=== PATIENT | female | born 1960 | race Caucasian/White ===

== ENCOUNTER 2024-10-17 18:25 | Inpatient (IN) | payer SELFPAY ==
[~2024-10-17 18:25] MED LIST: Iopamidol-370 76% 500 ML MDV (1 ML CHARGE) ONE
[2024-10-17] MEDS ORDERED: Morphine 4 MG/ML VIAL ONE ×2 (19:00→22:10)
[2024-10-17] MEDS ORDERED: LevoFLOXacin 750 mg/D5W 150 ml Premix Bag ONE (19:01)
[2024-10-17] MEDS ORDERED: Ondansetron PF 4 MG/2 ML Vial ONE (19:01)
[2024-10-17] MEDS ORDERED: Pantoprazole 40 MG VIAL ONE (19:35)
[2024-10-17 19:51] LABS: INR-International Normal Ratio 1.1; Prothrombin Time 13.9 sec (12.0-14.7)
[2024-10-17 19:54] LABS: ALT (SGPT) 9 U/L (8-55); AST (SGOT) 14 U/L (5-34); Albumin 3.8 g/dL (3.4-4.8); Alkaline Phosphatase 193 U/L (40-110); Anion Gap 9 mmol/L (10-20); BUN (Urea Nitrogen) 6 mg/dL (9.8-20.1); Bilirubin, Total 0.5 mg/dL (0.2-1.2); Calc. Creatinine Clearance 0 mL/min (70-130); Calcium 8.6 mg/dL (7.8-10.44); Carbon Dioxide 26 mmol/L (23-31); Chloride 109 mmol/L (98-107); Estimated GFR 90; Globulin 2.3 g/dL (2.4-3.5); Glucose 92 mg/dL (80-115); Potassium 3.3 mmol/L (3.5-5.1); Protein, Total 6.1 g/dL (5.8-8.1); Sodium 141 mmol/L (136-145)
[2024-10-17 20:03] LABS: Troponin I Less than 0.010 ng/mL (< 0.028)
[2024-10-17 20:05] LABS: #Basophils 0.04 10x3/uL (0.0-0.2); %Basophils 0.9 % (0.0-1.0); %Eosinophils 1.8 % (0.0-10.0); %Lymphocytes 43.9 % (21.0-51.0); %Monocytes 5.2 % (0.0-10.0); Hematocrit 38.5 % (36.0-47.0); Hemoglobin 13.2 g/dL (12.0-16.0); Mean Corpuscular HGB CONC 34.3 g/dL (32.0-36.0); Mean Corpuscular Hemoglobin 36.6 pg (27.0-31.0); Mean Corpuscular Volume 106.6 fL (78.0-98.0); Mean Platelet Volume 11.8 fL (7.4-10.4); Platelet Count 125 10x3/uL (130-400); RBC Distribution Width 14.4 % (11.5-14.5); Red Blood Cell (RBC) Count 3.61 mill/uL (4.20-5.40)
[2024-10-18 00:27] VITALS: BMI 19.8
[2024-10-18] MEDS: Morphine 2 MG/ML VIAL SLOW IVP SCH (01:15)
[2024-10-18] MEDS ORDERED: Acetaminophen 650 MG Suppository PR PRN (02:05)
[2024-10-18] MEDS ORDERED: Calcium Carbonate 500 MG ChewTAB PO PRN (02:05)
[2024-10-18] MEDS ORDERED: Ondansetron PF 4 MG/2 ML Vial IVP PRN (02:05)
[2024-10-18] MEDS ORDERED: Nicotine 14 MG PATCH TD PRN (02:12)
[2024-10-18] MEDS ORDERED: Electrolyte Replacement Protocol FS SCH (02:13)
[2024-10-18] MEDS: Ondansetron ODT 4 MG TAB PO PRN (04:41)
[2024-10-18] MEDS: Acetaminophen 325 MG TAB PO PRN (04:41)
[2024-10-18 05:10] LABS: #Basophils 0.05 10x3/uL (0.0-0.2); %Basophils 0.9 % (0.0-1.0); %Eosinophils 1.7 % (0.0-10.0); %Neutrophils 38.2 % (42.0-75.0); Hematocrit 35.1 % (36.0-47.0); Hemoglobin 11.6 g/dL (12.0-16.0); Mean Corpuscular Hemoglobin 36.5 pg (27.0-31.0); Mean Corpuscular Volume 110.4 fL (78.0-98.0); Mean Platelet Volume 11.5 fL (7.4-10.4); Platelet Count 114 10x3/uL (130-400); RBC Distribution Width 14.6 % (11.5-14.5); Red Blood Cell (RBC) Count 3.18 mill/uL (4.20-5.40)
[2024-10-18 05:23] LABS: ALT (SGPT) 6 U/L (8-55); AST (SGOT) 13 U/L (5-34); Albumin 3.3 g/dL (3.4-4.8); Alkaline Phosphatase 157 U/L (40-110); Anion Gap 11 mmol/L (10-20); BUN (Urea Nitrogen) 4 mg/dL (9.8-20.1); Bilirubin, Total 0.4 mg/dL (0.2-1.2); Calc. Creatinine Clearance 66 mL/min (70-130); Calcium 8.2 mg/dL (7.8-10.44); Carbon Dioxide 21 mmol/L (23-31); Chloride 110 mmol/L (98-107); Estimated GFR 97; Globulin 1.9 g/dL (2.4-3.5); Glucose 80 mg/dL (80-115); Potassium 3.4 mmol/L (3.5-5.1); Protein, Total 5.2 g/dL (5.8-8.1); Sodium 139 mmol/L (136-145)
[2024-10-18 05:36] LABS: Anisocytosis SLIGHT = 6-15 cells HPF (0-5); Band 3 % (5-11); Eosinophils 4 % (0-10); Hypochromia SLIGHT = 6-15 cells HPF (0-5); Lymphocytes 51 % (21-51); Macrocytosis SLIGHT = 6-15 cells HPF (0-5); Neutrophil 43 % (42-75); Platelet Adequacy Comment Platelets Decreased
[2024-10-18] MEDS: Famotidine/PF 20 mg/2ml Vial SLOW IVP SCH (08:28)
[2024-10-18] MEDS: Potassium Chloride 20 MEQ in Premix 1 BAG IVPB SCH (08:28)
[2024-10-18] MEDS: Famotidine 20 MG TAB PO SCH (08:28)
[2024-10-18] MEDS: traMADol HCl 50 MG TAB PO PRN (10:37)
[2024-10-18] MEDS: GoLYTELY 4,000 ml Bottle PO SCH (13:07)
[2024-10-18] MEDS ORDERED: Electrolyte Replacement Protocol FS PRN (13:45)
[2024-10-18] MEDS: Potassium Bicarbonate/Cit Ac 20 MEQ TAB PO SCH (13:59)
[2024-10-18] MEDS: Lactated Ringer's 1,000 ML IV SCH (17:42)
[2024-10-18] MEDS: Acetaminophen 500 MG TAB PO SCH (21:31)
[2024-10-19 05:52] LABS: #Basophils 0.05 10x3/uL (0.0-0.2); %Basophils 1.1 % (0.0-1.0); %Eosinophils 2.4 % (0.0-10.0); %Lymphocytes 56.7 % (21.0-51.0); %Monocytes 6.1 % (0.0-10.0); %Neutrophils 33.5 % (42.0-75.0); Hemoglobin 11.2 g/dL (12.0-16.0); Mean Corpuscular Hemoglobin 36.8 pg (27.0-31.0); Mean Corpuscular Volume 105.3 fL (78.0-98.0); Mean Platelet Volume 11.2 fL (7.4-10.4); Platelet Count 110 10x3/uL (130-400); RBC Distribution Width 14.1 % (11.5-14.5); Red Blood Cell (RBC) Count 3.04 mill/uL (4.20-5.40)
[2024-10-19 05:59] LABS: Anion Gap 10 mmol/L (10-20); BUN (Urea Nitrogen) 5 mg/dL (9.8-20.1); Calc. Creatinine Clearance 62 mL/min (70-130); Calcium 8.6 mg/dL (7.8-10.44); Carbon Dioxide 28 mmol/L (23-31); Chloride 106 mmol/L (98-107); Estimated GFR 92; Glucose 83 mg/dL (80-115); Potassium 3.7 mmol/L (3.5-5.1); Sodium 140 mmol/L (136-145)
[2024-10-19] MEDS ORDERED: PROPOFOL 60 ML ONE (09:31)
[2024-10-19] MEDS ORDERED: Lidocaine 1% PF 5 ML VIAL ONE (09:31)
[2024-10-19] MEDS ORDERED: PROPOFOL 20 ML ONE ×2 (10:41→10:53)
[2024-10-19 10:44] VITALS: BMI 19.8
[2024-10-19] MEDS: Amlodipine 10 MG TAB PO SCH (11:50)
[2024-10-19 15:04] VITALS: BP 135/77; TEMP 98
[2024-10-19] MEDS ORDERED: Docusate 100 MG CAP PO SCH (21:00)
== END 2024-10-19 14:55 | disposition home or self-care (01) | DRG 393 ==
LOC: ERS 18:25 → MSONC 23:14
PROVIDERS: ADMIT Student in an Organized Health Care Education/Training Program; ATTEND Student in an Organized Health Care Education/Training Program
PROC: 0DBK8ZX Excision of Ascending Colon, Via Natural or Artificial Opening Endoscopic, Diagnostic (ICD-10-PCS; principal; 2024-10-19)
PROC: 0DBL8ZX Excision of Transverse Colon, Via Natural or Artificial Opening Endoscopic, Diagnostic (ICD-10-PCS; 2024-10-19)
PROC: 0DBN8ZX Excision of Sigmoid Colon, Via Natural or Artificial Opening Endoscopic, Diagnostic (ICD-10-PCS; 2024-10-19)
PROC: 0DBH8ZX Excision of Cecum, Via Natural or Artificial Opening Endoscopic, Diagnostic (ICD-10-PCS; 2024-10-19)
DX: K64.8 Other hemorrhoids (principal); K57.31 Diverticulosis of large intestine without perforation or abscess with bleeding; K63.5 Polyp of colon; D12.5 Benign neoplasm of sigmoid colon; F17.200 Nicotine dependence, unspecified, uncomplicated; D69.6 Thrombocytopenia, unspecified; D75.89 Other specified diseases of blood and blood-forming organs; I25.10 Atherosclerotic heart disease of native coronary artery without angina pectoris; Z95.5 Presence of coronary angioplasty implant and graft; Z88.8 Allergy status to other drugs, medicaments and biological substances; Z90.710 Acquired absence of both cervix and uterus
CPT/HCPCS: 36415; 74177; 80048; 80053; 82607; 84484; 85025; 85610; 86141; 86850; 86900; 86901; 88305; 93005; 94760; 96374; 96375; 96376; J1956; J2272; J2405; J2470; J2704; J3480; J3490; J7120; Q0162; Q9967